=== PATIENT | female | born 1990 | race Caucasian/White ===

== ENCOUNTER 2022-10-22 18:12 | Emergency (ER) | payer OTHER ==
[2022-10-22] MEDS ORDERED: Ibuprofen 800 MG TAB ONE (18:29)
== END 2022-10-22 19:23 | disposition home or self-care (01) ==
LOC: BURERS 18:12
DX: S93.401A Sprain of unspecified ligament of right ankle, initial encounter (principal); F17.210 Nicotine dependence, cigarettes, uncomplicated; W17.2XXA Fall into hole, initial encounter

== ENCOUNTER 2023-12-07 13:16 | Emergency (ER) | payer BC, OTHER | END 2023-12-07 14:15 | disposition home or self-care (01) | LOC: BURERS 13:16 | DX: T23.211A Burn of second degree of right thumb (nail), initial encounter (principal); T31.0 Burns involving less than 10% of body surface; F17.210 Nicotine dependence, cigarettes, uncomplicated; W29.2XXA Contact with other powered household machinery, initial encounter; Y93.89 Activity, other specified | CPT/HCPCS: 99282 ==